=== PATIENT | female | born 1980 | race Caucasian/White ===

== ENCOUNTER 2021-01-29 11:43 | Emergency (ER) | payer SELFPAY ==
[~2021-01-29] VITALS: Ht 162.6 cm; Wt 89.6 kg
[2021-01-29 11:46] VITALS: BP 121/66
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
[2021-01-29] MEDS ORDERED: DIPH,PERTUSS(ACELL),TET VAC/PF 0.5 ML IM-VACC ONE (15:00)
[2021-01-29] MEDS ORDERED: LIDOCAINE 1%, 10ML INFIL ONE (15:00)
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
== END 2021-01-29 15:18 | disposition home or self-care (01) ==
LOC: ED 12:14
DX: S01.511A Laceration without foreign body of lip, initial encounter (principal); Y04.8XXA Assault by other bodily force, initial encounter; Y93.89 Activity, other specified; Y92.410 Unspecified street and highway as the place of occurrence of the external cause; Y99.8 Other external cause status
CPT/HCPCS: 99281